=== PATIENT | male | born 1985 | race African-American/Black ===

== ENCOUNTER 2018-08-28 21:53 | Emergency (ER) | payer MEDICAID ==
[2018-08-28 22:02] VITALS: BP 135/104
--- NOTE | 2018-08-29 00:48 | ER Document Report ---
ED General - General Chief Complaint: Alcohol Withdrawl Stated Complaint: ALCOHOL WITHDRAWL Time Seen by Provider: 08/28/18 23:05 Notes: Patient is a 32-year-old male without chronic medical problems, does admit to drinking approximately 6 beers daily who presents with concerns that he may be withdrawing from alcohol. The patient states that he last drink 6 beers earlier today and this evening began to feel somewhat shaky, restless and was pacing. States he looked online what the symptoms could be and discovered that it could be related to alcohol withdrawal prompting him to come to the emergency department. The patient states that he drinks almost every day but occasionally does not and each time that he does not drink he develops the symptoms. He denies ever having a seizure, visual or auditory hallucinations, vomiting, or severe generalized shaking in the setting of not using alcohol. He does express a desire to quit using alcohol. He has not seen his general physician regarding these concerns. Nothing improves or worsens his symptoms. TRAVEL OUTSIDE OF THE [place] IN LAST 30 DAYS: No - HPI Onset: This evening Onset/Duration: Gradual Quality of pain: No pain Severity: None Pain Level: Denies Associated symptoms: None Exacerbated by: Denies Relieved by: Denies Similar symptoms previously: Yes Recently seen / treated by doctor: No Past Medical History - General Information source: Patient - Social History Smoking Status: Never Smoker Frequency of alcohol use: Heavy Drug Abuse: None Family History: Reviewed & Not Pertinent Review of Systems - Review of Systems Notes: Constitutional: Negative for fever. HENT: Negative for sore throat. Eyes: Negative for visual changes. Cardiovascular: Negative for chest pain. Positive for lightheadedness Respiratory: Negative for shortness of breath. Gastrointestinal: Negative for abdominal pain, positive for nausea Genitourinary: Negative for dysuria. Musculoskeletal: Negative for back pain. Skin: Negative for rash. Neurological: Positive for tremulousness 10 point ROS negative except as marked above and in HPI. Physical Exam - Vital signs Vitals: Temp Pulse Resp BP Pulse Ox 98.6 F 95 16 135/104 H 97 08/28/18 21:53 08/28/18 21:53 08/28/18 21:53 08/28/18 21:53 08/28/18 21:53 Interpretation: Normal Notes: PHYSICAL EXAMINATION: GENERAL: Well-appearing, well-nourished and in no acute distress. HEAD: Atraumatic, normocephalic. EYES: Pupils equal round and reactive to light, extraocular movements intact, sclera anicteric, conjunctiva are normal. ENT: nares patent, oropharynx clear without exudates. Moist mucous membranes. NECK: Normal range of motion, supple without lymphadenopathy LUNGS: Breath sounds clear to auscultation bilaterally and equal. No wheezes rales or rhonchi. HEART: Regular rate and rhythm without murmurs ABDOMEN: Soft, nontender, normoactive bowel sounds. No guarding, no rebound. No masses appreciated. EXTREMITIES: Normal range of motion, no pitting or edema. No cyanosis. NEUROLOGICAL: Face symmetric. Tongue protrudes midline. Extraocular motions intact. Pupils are 2 mm and equally reactive. Normal speech, normal gait. 5 out of 5 strength in both the distal and proximal upper and lower extremities bilaterally. Sensation is grossly intact throughout. Finger to nose testing normal. Pronator drift normal. PSYCH: Normal mood, normal affect. SKIN: Warm, Dry, normal turgor, no rashes or lesions noted. Course - Re-evaluation Re-evalutation: 08/29/18 00:46 Patient presents with symptoms of mild alcohol withdrawal including mild tremulousness and agitation but denies any hallucinations, alert, oriented, not tremulous on exam. No significant tachycardia at time of my evaluation. He does not always drink every day but states on the days that he does not drink he does feel the symptoms, looked up online what symptoms he was having might be and became concerned prompting him come to the emergency department. I do not believe the patient requires hospitalization for his alcohol withdrawal nor does he require benzo diazepam taper. I have advised the patient on continued alcohol cessation as well as signs that would suggest a more concerning alcohol withdrawal pattern. No indication for labs or imaging. At this time will discharge with return precautions and follow-up recommendations. Verbal discharge instructions given a the bedside and opportunity for questions given. Medication warnings reviewed. Patient is in agreement with this plan and has v erbalized understanding of return precautions and the need for primary care follow-up in the next 24-72 hours. - Vital Signs Vital signs: Temp Pulse Resp BP Pulse Ox 98.6 F 95 16 135/104 H 97 08/28/18 21:53 08/28/18 21:53 08/28/18 21:53 08/28/18 21:53 08/28/18 21:53 Discharge - Discharge Clinical Impression: Alcohol abuse Alcohol withdrawal Qualifiers: Complication of substance-induced condition: uncomplicated Qualified Code(s): F10.230 - Alcohol dependence with withdrawal, uncomplicated Condition: Good Disposition: HOME, SELF-CARE Additional Instructions: You need to return to the emergency room immediately if you pass out, or vomiting so severely your unable to keep anything down, start hallucinate, or have any other symptoms that are of concern to you.
== END 2018-08-28 23:30 | disposition home or self-care (01) ==
LOC: ER 21:53
DX: F10.230 Alcohol dependence with withdrawal, uncomplicated (principal)
CPT/HCPCS: 99284

== ENCOUNTER 2019-05-14 18:21 | Emergency (ER) | payer OTHER ==
[2019-05-14 18:41] VITALS: BP 134/70
[2019-05-14] MEDS ORDERED: IBUPROFEN 600 MG TABLET PO ONE (21:05)
--- NOTE | 2019-05-14 21:08 | ER Document Report ---
HPI - HPI Patient complains to provider of: dental pain Time Seen by Provider: 05/14/19 20:34 Pain Level: 3 Context: This is a 33 yr old male presenting with toothache. Patient states this has been ongoing for about 4 days. Patient describes the pain in the mouth as a 7 out of 10, sharp, aching, is located in the left lower posterior part of the mouth. Patient denies any difficulty swallowing. Patient denies any difficulty handling secretions. Patient states normal appetite and fluid intake. Patient denies any fever or chills. Patient denies any radiation of pain into the neck. Patient states that chewing, and hot and cold make the pain worse. Palpation makes pain worse and rest makes it better. Patient denies any difficulty breathing. Patient denies all complaints at this time. Patient is here for pain control. states he has an apt with a dentist in 2 days. no recent tylenol and motrin Similar symptoms previously: Yes Recently seen / treated by doctor: No - ROS Systems Reviewed and Negative: Yes All other systems reviewed and negative - To include 10 systems, unless mentioned in the hpi. Past Medical History - General Information source: Patient - Social History Smoking Status: Current Every Day Smoker Frequency of alcohol use: Social Drug Abuse: None Family History: Reviewed & Not Pertinent Patient has suicidal ideation: No Patient has homicidal ideation: No Renal/ Medical History: Denies: Hx Peritoneal Dialysis - Immunizations Immunizations up to date: Yes Vertical Provider Document - CONSTITUTIONAL Agree With Documented VS: Yes Exam Limitations: No Limitations General Appearance: No Apparent Distress Notes: GENERAL_APPEARANCE: well_nourished, alert, cooperative, no_acute_distress, no_obvious_discomfort. pleasant, thin young black male, speaking in full sentences, nontoxic, in no sign of pain or resp distress, easily sitting up, no one is with him VITALS:reviewed, see vital signs table. HEAD: normocephalic, atraumatic. no swelling or ttp EARS: normal TMs and canals bilat. no sign of mastoiditis. no drainage or bleeding. no hemotympanum EYES: PERRL, EOMI, conjunctiva_clear. NOSE: no_nasal_discharge. MOUTH: no decreased moisture. there are multiple dental caries noted. Tooth #17 is extremely carious. There is mild localized inflammation. There is no buccal swelling. there is tenderness to palpation over the noted tooth of concern. Uvula is midline. There is no trismus. There is no TMJ ttp/clicking produced. no tenderness over the sternocleidomastoid muscles. There is no tenderness over the thyroid cartilage. There is no submandibular hardness. no sign of ludwigs or drainable dental abscess. THROAT: no_tonsilar_inflammation/exudate/hypertrophy, no_airway_obstruction. no ulcers/lesions/thrush. no tongue/lip/facial swelling. no drooling, tripoding, voice change or stridor NECK: supple, no_neck_tenderness, mild bilateral anterior cervical lymphadenop athy. full rom and full strength. no meningeal signs. LUNGS: no_wheezing, ctab, (-)accessory muscle use, good air exchange bilateral. HEART: normal_rate, normal_rhythm, EXTREMITIES: strength 5/5 in all extremities, good pulses in all extremities, no swelling\tenderness in the extremities, no edema. full rom. normal gait. 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 NEURO: motor and sensation intact to light touch, SKIN: warm, dry, good_color, no_rash. no grossly visible overlying skin changes or signs of trauma. MENTAL_STATUS: speech_clear, oriented_X_3 , normal_affect, responds_appropriat dante to questions. - INFECTION CONTROL TRAVEL OUTSIDE OF THE [place] IN LAST 30 DAYS: No Course - Re-evaluation Re-evalutation: 05/14/19 21:05 patient presents with tooth ache at this time. Patient is completely neurovascularly intact. Patient in no acute distress. There is no emergency that is present at this time. There was mild localized gingival inflammation. There was no buccal swelling. Patient had early signs of active abscess at this time. Patient will be started on antibiotics. will dc with penicillin VK. He can take Tylenol or Motrin as needed for any pain. Definitive treatment is a dentist, and this was thoroughly explained to the patient. Pt will follow up closely with dentist in 1-2 days. If the patient has any acute change or worsening or concerning sx patient will return to emergency Department immediately. Patient verbalized understanding and was in agreement with this treatment plan. Patient remained in stable condition and was very pleasant. vss. afebrile. well appearing. satting well on ra. On reexam, pt improved with tx listed. remained stable. nontoxic. well appearing. pain controlled. tolerating po. requesting to go home. Documentation achieved through voice recording which may lead to some occasional accidental typographical errors. Extensive efforts have been made to proof read documentation to make sure these are the least as possible. 05/14/19 21:19 Category Date Time Status Ibuprofen [Motrin 600 mg Tablet] Med 05/14/19 21:05 Discontinued 600 mg PO NOW ONE Penicillin V Potassium [Penicillin Vk 500 mg Tablet] Med 05/14/19 21:15 Once 500 mg PO NOW ONE - Vital Signs Vital signs: Temp Pulse Resp BP Pulse Ox 98.6 F 80 16 134/70 H 97 05/14/19 18:39 05/14/19 18:39 05/14/19 18:39 05/14/19 18:39 05/14/19 18:39 Discharge - Discharge Clinical Impression: Pain, dental Condition: Good Disposition: HOME, SELF-CARE Instructions: Toothache ([facility]) Additional Instructions: Follow-up with dentist in 1 to 2 days. Return for any worsening symptoms. tylenol or motrin as needed for any pain. take the medication as prescribed. Prescriptions: Penicillin V Potassium [Penicillin Vk 500 mg Tablet] 500 mg PO QID 10 Days #40 tablet Forms: Return to Work
[2019-05-14] MEDS ORDERED: PENICILLIN V POTASSIUM 500 MG TABLET PO ONE (21:15)
== END 2019-05-14 21:26 | disposition home or self-care (01) ==
LOC: ER 18:21
DX: K08.9 Disorder of teeth and supporting structures, unspecified (principal); F17.200 Nicotine dependence, unspecified, uncomplicated
CPT/HCPCS: 99282

== ENCOUNTER 2019-06-10 07:19 | Emergency (ER) | payer OTHER ==
[2019-06-10 07:36] VITALS: BP 142/93
--- NOTE | 2019-06-10 08:05 | ER Document Report ---
ED General - General Chief Complaint: Alcohol Withdrawl Stated Complaint: WITHDRAWL Time Seen by Provider: 06/10/19 07:51 TRAVEL OUTSIDE OF THE [place] IN LAST 30 DAYS: No - HPI Notes: 33-year-old male admitted alcoholic who presents with concern over alcohol withdrawal. Patient has a history long-standing of alcohol use, drinks between 6 and 12 beers per day. His last drink was approximately 48+ hours ago. He presents now because he is concerned to withdrawal, feels somewhat shaky and jittery. He denies any history of prior acute withdrawal, no history of withdrawal seizures or delirium tremens. He was seen here in 2018 with similar presentation, did not receive any benzodiazepine and had successfully quit drinking for a small period of time. He is called Alcoholics Anonymous and is received some local referral information for support networks in groups. He does not present with any family members at this time. He denies any homicidal or suicidal ideation. No hallucinations, not hearing voices. No other modifying factors no other provocative or palliative factors. - Related Data Allergies/Adverse Reactions: Sulfa (Sulfonamide Antibiotics) Allergy (Verified 06/10/19 07:31) Past Medical History - Social History Smoking Status: Current Every Day Smoker Chew tobacco use (# tins/day): No Frequency of alcohol use: Heavy Drug Abuse: None Family History: Reviewed & Not Pertinent Patient has suicidal ideation: No Patient has homicidal ideation: No - Medical History Medical History: Negative Renal/ Medical History: Denies: Hx Peritoneal Dialysis - Immunizations Immunizations up to date: Yes Review of Systems - Review of Systems Notes: Review of systems as in the history of present illness, otherwise negative x 10 systems. Physical Exam - Vital signs Vitals: Temp Pulse Resp BP Pulse Ox 98.4 F 109 H 24 H 142/93 H 98 06/10/19 07:22 06/10/19 07:22 06/10/19 07:22 06/10/19 07:22 06/10/19 07:22 - Notes Notes: General: Well developed . No tremor, no asterixis. HEENT: Normocephalic, atraumatic. Pupils equal round reactive to light. No JVD. Chest: No trauma. Respiratory: Good air exchange, normal excursion. Cardiac: Regular rhythm. No murmurs or gallops. Abdomen: Soft, benign. Nondistended. Nontender. Back: No asymmetry or gross abnormality. Motor: Grossly normal power and tone. Neurologic: Alert, nonfocal. Cranial nerves II-12 are intact. Sensation intact. Vascular: Well perfused. Normal peripheral pulses. Skin: No petechiae or purpura. Course - Re-evaluation Re-evalutation: 06/10/19 08:04 33-year-old male presents with mild withdrawal. He is over 48 hours out now, no high risk features to suggest DTs that would present late. Given instructions with regard to signs and symptoms of DTs to watch out for. At this point no in dication for benzodiazepine taper, will follow-up as discussed. - Vital Signs Vital signs: Temp Pulse Resp BP Pulse Ox 98.4 F 109 H 24 H 142/93 H 98 06/10/19 07:22 06/10/19 07:22 06/10/19 07:22 06/10/19 07:22 06/10/19 07:22 Discharge - Discharge Clinical Impression: Alcohol withdrawal Qualifiers: Complication of substance-induced condition: uncomplicated Qualified Code(s): F10.230 - Alcohol dependence with withdrawal, uncomplicated Condition: Stable Disposition: HOME, SELF-CARE Instructions: Alcohol Withdrawl ([facility]) Additional Instructions: Follow-up as discussed
== END 2019-06-10 08:49 | disposition home or self-care (01) ==
LOC: ER 07:19
DX: F10.230 Alcohol dependence with withdrawal, uncomplicated (principal); F17.200 Nicotine dependence, unspecified, uncomplicated; Z88.2 Allergy status to sulfonamides
CPT/HCPCS: 99284

== ENCOUNTER 2019-08-07 09:04 | Emergency (ER) | payer OTHER ==
[2019-08-07] MEDS ORDERED: FAMOTIDINE INJ/PF 20 MG/2 ML SDV IV ONE (09:22)
[2019-08-07] MEDS ORDERED: ONDANSETRON HCL INJ/PF 4 MG/2 ML SDV IV ONE (09:22)
[2019-08-07] MEDS ORDERED: NORMAL SALINE 1000 ML 1,000 ML IV ONE (09:22)
--- NOTE | 2019-08-07 09:24 | ER Document Report ---
ED Medical Screen (RME) - General Chief Complaint: Nausea/Vomiting/Diarrhea Stated Complaint: COLD SYMPTOMS Time Seen by Provider: 08/07/19 09:18 Mode of Arrival: Ambulatory Information source: Patient Notes: Patient is an otherwise healthy 33-year-old male presenting to the emergency department chief complaint of nausea, vomiting and diarrhea that began yesterday. Patient reports only 3 episodes of vomiting but reports he has been having diarrhea at least 2/h for the last 24 hours. He reports mild generalized abdominal pain. Denies any blood in his vomit or stool. Denies any fevers but reports chills. Exam: Mild tenderness to the mid abdomen. No guarding no rebound. I have greeted and performed a rapid initial assessment of this patient. A comprehensive ED assessment and evaluation of the patient, analysis of test results and completion of the medical decision making process will be conducted by additional ED providers. I have specifically instructed the patient or fami ly members with the patient to immediately return to any nursing staff should anything change in the patient's condition or with their chief complaint. This medical record was dictated with voice recognizing software. There may be grammatical, syntax errors that are unintended. TRAVEL OUTSIDE OF THE [place] IN LAST 30 DAYS: No - Related Data Allergies/Adverse Reactions: Sulfa (Sulfonamide Antibiotics) Allergy (Verified 08/07/19 09:19) Past Medical History - Social History Chew tobacco use (# tins/day): No Frequency of alcohol use: Occasional Drug Abuse: None Renal/ Medical History: Denies: Hx Peritoneal Dialysis - Immunizations Immunizations up to date: Yes Physical Exam - Vital signs Vitals: Temp Pulse Resp BP Pulse Ox 98.6 F 103 H 16 140/80 H 99 08/07/19 09:17 08/07/19 09:17 08/07/19 09:17 08/07/19 09:17 08/07/19 09:17 Course - Vital Signs Vital signs: Temp Pulse Resp BP Pulse Ox 98.6 F 103 H 16 140/80 H 99 08/07/19 09:17 08/07/19 09:17 08/07/19 09:17 08/07/19 09:17 08/07/19 09:17
[2019-08-07 09:54] LABS: ABSOLUTE BASOPHILS # (AUTO) 0.1 10^3/uL (0.0-0.2); ABSOLUTE EOSINOPHILS # (AUTO) 0.3 10^3/uL (0.0-0.6); ABSOLUTE LYMPHOCYTES (AUTO) 1.8 10^3/uL (0.5-4.7); ABSOLUTE NEUT (AUTO) 5.8 10^3/uL (1.7-8.2); EOSINOPHILS % (AUTO) 3.2 % (0-6); HEMATOCRIT 51.3 % (37.9-51.0); HEMOGLOBIN 17.5 g/dL (13.5-17.0); LYMPHOCYTES % (AUTO) 19.7 % (13-45); MEAN CORPUSCULAR HEMOGLOBIN 32.1 pg (27.0-33.4); MEAN CORPUSCULAR HGB CONC 34.1 g/dL (32.0-36.0); MEAN CORPUSCULAR VOLUME 94 fl (80-97); MONOCYTES % (AUTO) 11.3 % (3-13); PLATELET COUNT 290 10^3/uL (150-450); RED BLOOD COUNT 5.44 10^6/uL (4.35-5.55); RED CELL DISTRIBUTION WIDTH 12.9 % (11.5-14.0); SEGMENTED NEUTROPHILS % (AUTO) 64.8 % (42-78); TOTAL CELLS COUNTED % (AUTO) 100 %; WHITE BLOOD COUNT 8.9 10^3/uL (4.0-10.5)
[2019-08-07 10:00] LABS: APPEARANCE,URINE CLEAR; BILIRUBIN,URINE NEGATIVE (NEGATIVE); COLOR,URINE YELLOW; GLUCOSE, URINE NEGATIVE (NEGATIVE); KETONES,URINE NEGATIVE (NEGATIVE); LEUKOCYTE ESTERASE,URINE NEGATIVE (NEGATIVE); NITRITE,URINE NEGATIVE (NEGATIVE); PROTEIN,URINE NEGATIVE (NEGATIVE); URINE SPECIFIC GRAVITY 1.016; UROBILINOGEN,URINE NEGATIVE mg/dL (<2.0)
[2019-08-07 10:11] LABS: ALBUMIN 4.1 g/dL (3.5-5.0); ALKALINE PHOSPHATASE 83 U/L (38-126); ANION GAP 7 (5-19); ASPARTATE AMINO TRANSFERASE 22 U/L (17-59); BILIRUBIN,DIRECT 0.1 mg/dL (0.0-0.4); BILIRUBIN,TOTAL 0.4 mg/dL (0.2-1.3); BLOOD UREA NITROGEN 12 mg/dL (7-20); CALCIUM 9.7 mg/dL (8.4-10.2); CARBON DIOXIDE 31 mmol/L (22-30); CHLORIDE 107 mmol/L (98-107); GLUCOSE 100 mg/dL (75-110); POTASSIUM 4.8 mmol/L (3.6-5.0)
--- NOTE | 2019-08-07 11:14 | ER Document Report ---
ED General - General Chief Complaint: Nausea/Vomiting/Diarrhea Stated Complaint: COLD SYMPTOMS Time Seen by Provider: 08/07/19 09:18 Mode of Arrival: Ambulatory TRAVEL OUTSIDE OF THE [place] IN LAST 30 DAYS: No - HPI Notes: Patient is a 33-year-old male no significant past medical history presents complaining of nasal congestion/discharge, occasional cough, nausea/vomiting x3 this morning, watery diarrhea over the past couple days. He has had some decreased p.o. intake. He still urinating normally. Patient is requesting a work note as well. No other concerns or complaints. No other areas of pain. Denies any headache, fever, neck pain, sore throat, chest pain, palpitations, syncope, shortness of breath, wheeze, dyspnea, abdominal pain, urinary retention, dysuria, hematuria, or rash. - Related Data Allergies/Adverse Reactions: Sulfa (Sulfonamide Antibiotics) Allergy (Verified 08/07/19 09:19) Past Medical History - General Information source: Patient - Social History Smoking Status: Current Every Day Smoker Chew tobacco use (# tins/day): No Frequency of alcohol use: Occasional Drug Abuse: None Family History: Reviewed & Not Pertinent Patient has suicidal ideation: No Patient has homicidal ideation: No Renal/ Medical History: Denies: Hx Peritoneal Dialysis - Immunizations Immunizations up to date: Yes Review of Systems - Review of Systems -: Yes All other systems reviewed and negative Physical Exam - Vital signs Vitals: Temp Pulse Resp BP Pulse Ox 98.6 F 103 H 16 140/80 H 99 08/07/19 09:17 08/07/19 09:17 08/07/19 09:17 08/07/19 09:17 08/07/19 09:17 - Notes Notes: PHYSICAL EXAMINATION: GENERAL: Well-appearing, well-nourished and in no acute distress. A&Ox4. Answers questions appropriately. Moves comfortably w/o notable distress HEAD: Atraumatic, normocephalic. EYES: Pupils equal round and reactive to light, extraocular movements intact, sclera anicteric, conjunctiva are normal. ENT: Nares patent and with clear discharge. oropharynx no erythema without exudates. No tonsilar hypertrophy without erythema or exudate. No palatine shift. Uvula midline. No tongue protrusion. No drooling, hoarseness, or airway compromise. Moist mucous membranes. No sinus tenderness. NECK: Normal range of motion, supple without lymphadenopathy. No rigidity/meningismus. LUNGS: Breath sounds clear to auscultation bilaterally and equal. No wheezes rales or rhonchi. No retractions HEART: Regular rate and rhythm without murmurs, rubs, gallops. ABDOMEN: Soft, nontender, nondistended abdomen. No guarding, no rebound. Normal bowel sounds present. No CVA tenderness bilaterally. NEUROLOGICAL: Normal speech, normal gait. PSYCH: Normal mood, normal affect. SKIN: Warm, Dry, normal turgor, no rashes or lesions noted. Course - Re-evaluation Re-evalutation: 08/07/19 11:11 Patient is an afebrile, well-hydrated, 33-year-old male who presents to the emergency department with an acute URI/gastroenteritis, suspect viral. Vitals are acceptable without significant tachycardia, tachypnea, or hypoxia. PE is o therwise unremarkable. He is nontoxic-appearing and is tolerating p.o. without difficulty. Lungs are clear to auscultation bilaterally. Abd is soft and nontender throughout. CBC, CMP, Lipase unremarkable. No further labs or imaging warranted at this time. Low suspicion for any meningitis, sepsis, peritonsillar/pharyngeal abscess, respiratory compromise, acute abdomen, or other emergent systemic condition at this time. Patient is aware this condition can change from initial presentation and he needs to monitor symptoms closely. Conservative measures otherwise for symptoms. Recheck with your PCM in 2-3 days. Return to the ED with any worsening/concerning symptoms otherwise as reviewed in discharge. Patient is in agreement. - Vital Signs Vital signs: Temp Pulse Resp BP Pulse Ox 98.6 F 103 H 16 140/80 H 99 08/07/19 09:17 08/07/19 09:17 08/07/19 09:17 08/07/19 09:17 08/07/19 09:17 - Laboratory Result Diagrams: 08/07/19 09:40 08/07/19 09:40 Laboratory results interpreted by me: 08/07/19 08/07/19 09:40 09:40 Hgb 17.5 H Hct 51.3 H Carbon Dioxide 31 H Discharge - Discharge Clinical Impression: Acute URI, Nausea vomiting and diarrhea Condition: Stable Disposition: HOME, SELF-CARE Instructions: Antinausea Medication ([facility]), Vomiting ([facility]), Upper Respiratory Illness ([facility]), Diarrhea, Nonspecific ([facility]) Additional Instructions: Maintain adequate fluid and food intake [place] diet ([employer] Bananas, rice, apples, toast, etc Zofran as needed tylenol if needed Monitor for any worsening symptoms Make sure you are staying hydrated enough to urinate and have normal BM's Recheck with your PCM in 2-3 days Consider consult with Gastroenterology for ongoing/worsening symptoms Return to the ED with any worsening symptoms and/or development of fever, heada samantha, chest pain, palpitations, syncope, shortness of breath, trouble breathing, abdominal pain, n/v/d, blood in stool/urine, weakness, or other worsening symptoms that are concerning to you. Prescriptions: Ondansetron [Zofran Odt 4 mg Tablet] 1 - 2 tab PO Q4H PRN #15 tab.rapdis PRN Reason: For Nausea/Vomiting Forms: Elevated Blood Pressure, Smoking Cessation Education Referrals: KAI MCKEON MD [ACTIVE STAFF] - Follow up as needed [facility] [Provider Group] - Follow up as needed
[2019-08-07 11:16] VITALS: BP 127/76
== END 2019-08-07 11:21 | disposition home or self-care (01) ==
LOC: ER 09:04
DX: J06.9 Acute upper respiratory infection, unspecified (principal); R11.2 Nausea with vomiting, unspecified; R19.7 Diarrhea, unspecified; R09.81 Nasal congestion; F17.200 Nicotine dependence, unspecified, uncomplicated
CPT/HCPCS: 99283; 96361; 96374; 96375; 36415; 83690; 85025; 80053; 81001; J2405; J7030; S0028